=== PATIENT | female | born 1965 | race Caucasian/White ===

== ENCOUNTER → 2022-08-12 | Day surgery (SDC) | payer BC ==
[2022-08-05 10:58] VITALS: BMI 30.1
== END | disposition home or self-care (01) ==
LOC: FM/S 10:51 → FASUSAT 10:51 → UNDOADMIN 10:51 → EDSTATUS 12:30
PROVIDERS: ATTEND Orthopaedic Surgery Orthopaedic Surgery of the Spine
PROC: 0SRC0JZ Replacement of Right Knee Joint with Synthetic Substitute, Open Approach (ICD-10-PCS; principal; 2022-08-12)
DX: Z53.09 Procedure and treatment not carried out because of other contraindication (principal); M17.11 Unilateral primary osteoarthritis, right knee
CPT/HCPCS: C9803-CS; U0003; U0005